=== PATIENT | female | born 2000 | race Two or more races ===

== ENCOUNTER 2022-05-27 21:24 | Emergency (ER) | payer BC, MEDICAID, OTHER ==
[~2022-05-27] VITALS: Ht 160 cm; Wt 83.9 kg
--- NOTE | 2022-05-27 22:28 | NUR ---
Patient to room #4, assisted into gown, placed on monitor and informed of plan of care. No s/s of any distress noted. Bedside EKG done for MD review. MD at bedside for exam. Will continue to monitor.
[2022-05-27] MEDS: ASPIRIN 81 MG TAB.CHEW PO ONE (22:36)
[2022-05-27] MEDS ORDERED: ASPIRIN 81 MG TAB.CHEW ONE (22:37)
--- NOTE | 2022-05-27 22:39 | NUR ---
xray at bedside.
--- NOTE | 2022-05-27 22:48 | NUR ---
LAB AT BEDSIDE.
[2022-05-27 22:52] LABS: HEMATOCRIT 37.4 % (31.2-41.9); MEAN CORPUSCULAR HEMOGLOBIN 28.9 uug (24.7-32.8); MEAN CORPUSCULAR VOLUME 87.1 fL (75.5-95.3); PLATELET COUNT (AUTO) 350 K/uL (179-408)
[2022-05-27 23:10] LABS: CARBON DIOXIDE 29 mmol/L (21-32); CHLORIDE 105 mmol/L (98-107); CREATININE 0.8 mg/dL (0.6-1.3); GLUCOSE 86 mg/dL (74-106); POTASSIUM 3.8 mmol/L (3.5-5.1); UREA NITROGEN, BLOOD 13 mg/dL (7-18)
[2022-05-27 23:23] LABS: ALANINE AMINOTRANSFERASE 20 U/L (14-59); ALKALINE PHOSPHATASE 80 U/L (50-136); ASPARTATE AMINOTRANSFERASE 13 U/L (15-37); BILIRUBIN,DIRECT 0.1 mg/dL (0.0-0.2); BILIRUBIN,TOTAL 0.4 mg/dL (0.2-1.0); TOTAL PROTEIN, SERUM 7.2 g/dL (6.4-8.2)
--- NOTE | 2022-05-27 23:23 | NUR ---
resting in bed on phone, no voiced c/o at this time.
== END 2022-05-28 01:03 | disposition home or self-care (01) ==
LOC: ER 21:24
DX: R07.89 Other chest pain (principal)
CPT/HCPCS: 36415; 71045; 84484; 85025; 93005; A4663